=== PATIENT | female | born 1965 | race Caucasian/White ===

== ENCOUNTER 2018-04-17 10:46 | Emergency (ER) | payer SELFPAY ==
[2018-04-17 10:58] VITALS: BP 105/44; PULSE 54; TEMP 98; BMI 23.0
--- NOTE | 2018-04-17 11:26 | PDOC ---
History of Present Illness - General History Source: Patient - History of Present Illness Timing/Duration: reports: intermittent <Noemi Sorto Last Filed: 04/17/18 14:26> <Nancy Lu - Last Filed: 04/19/18 10:54> - General Chief Complaint: Pain Stated Complaint: SIDE PAIN Time Seen by Provider: 04/17/18 11:03 Past History - Past Medical History COPD: No - Immunization History Immunization Up to Date: Yes - Suicide/Smoking/Psychosocial Hx Smoking History: Never smoked Have you smoked in the past 12 months: No Information on smoking cessation initiated: No Hx Alcohol Use: No Drug/Substance Use Hx: No Substance Use Type: None <Noemi Sorto Last Filed: 04/17/18 14:26> <Nancy Lu - Last Filed: 04/19/18 10:54> - Past Medical History Allergies/Adverse Reactions: Allergies Allergy/AdvReac Type Severity Reaction Status Date / Time No Known Allergies Allergy Verified 04/17/18 10:54 Home Medications: Ambulatory Orders NK [No Known Home Medication] 03/13/15 Review of Systems - Review of Systems Constitutional: No: Chills, Fever Respiratory: No: Cough, Shortness of Breath Cardiac (ROS): No: Chest Pain ABD/GI: No: Constipated, Diarrhea, Nausea, Rectal Bleeding, Vomiting : No: Dysuria, Hematuria <Noemi Sorto Filed: 04/17/18 14:26> *Physical Exam - Vital Signs Last Vital Signs Temp Pulse Resp BP Pulse Ox 98.0 F 54 L 17 105/44 L 100 04/17/18 10:55 04/17/18 10:55 04/17/18 10:55 04/17/18 10:55 04/17/18 10:55 - Physical Exam General Appearance: Yes: Appropriately Dressed. No: Apparent Distress HEENT: positive: Normal Voice Neck: positive: Supple Respiratory/Chest: positive: Lungs Clear, Normal Breath Sounds. negative: Respiratory Distress Cardiovascular: positive: Regular Rate, S1, S2 Gastrointestinal/Abdominal: negative: Tender Musculoskeletal: negative: CVA Tenderness Integumentary: positive: Dry, Warm Neurologic: positive: Fully Oriented, Alert, Normal Mood/Affect <Noemi Sorto - Last Filed: 04/17/18 14:26> - Vital Signs Last Vital Signs Temp Pulse Resp BP Pulse Ox 98.0 F 54 L 17 105/44 L 100 04/17/18 10:55 04/17/18 10:55 04/17/18 10:55 04/17/18 10:55 04/17/18 10:55 <Nancy Lu - Last Filed: 04/19/18 10:54> Moderate Sedation - Procedure Monitoring Vital Signs: Procedure Monitoring Vital Signs Temperature 98.0 F 04/17/18 10:55 Pulse Rate 54 L 04/17/18 10:55 Respiratory Rate 17 04/17/18 10:55 Blood Pressure 105/44 L 04/17/18 10:55 O2 Sat by Pulse Oximetry (%) 100 04/17/18 10:55 <Noemi Sorto - Last Filed: 04/17/18 14:26> - Procedure Monitoring Vital Signs: Procedure Monitoring Vital Signs Temperature 98.0 F 04/17/18 10:55 Pulse Rate 54 L 04/17/18 10:55 Respiratory Rate 17 04/17/18 10:55 Blood Pressure 105/44 L 04/17/18 10:55 O2 Sat by Pulse Oximetry (%) 100 04/17/18 10:55 <Nancy Lu - Last Filed: 04/19/18 10:54> ED Treatment Course - LABORATORY CBC & Chemistry Diagram: 04/17/18 11:12 04/17/18 11:12 <Noemi Sorto - Last Filed: 04/17/18 14:26> - LABORATORY CBC & Chemistry Diagram: 04/17/18 11:12 04/17/18 11:12 - ADDITIONAL ORDERS Additional order review: 04/17/18 11:12 RBC 4.36 MCV 87.5 MCHC 34.4 RDW 13.3 MPV 8.2 Neutrophils % 57.7 Lymphocytes % 35.0 Monocytes % 5.9 Eosinophils % 1.0 Basophils % 0.4 - Medications Given in the ED: ED Medications Discontinued Medications Generic Name Dose Route Start Last Admin Trade Name Freq PRN Reason Stop Dose Admin Ketorolac Tromethamine 30 mg 04/17/18 14:09 04/17/18 14:12 Toradol Injection - IVPUSH 04/17/18 14:10 30 mg ONCE ONE Administration <Nancy Lu - Last Filed: 04/19/18 10:54> Medical Decision Making - Medical Decision Making 04/17/18 11:24 53-year-old female, denies any past medical history here with 3 days of intermittent RUQ pain, unable to describe, 10 out of 10 at its worse with no exacerbating or alleviating factors. Denies any nausea, vomiting, fever, chills , change in bowel movements, dysuria or hematuria. 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 No history of similar pain. Denies history of gallstones or kidney stones See exam Possible biliary colic vs gastritis, less likely pancreatitis, renal colic or uti/pyelo, doubt cardiac source Stable w/ unremarkable exam -pain control -labs -EKG -CXR -US 04/17/18 11:37 04/17/18 13:39 EKG w/ sinus ya to 47 bpm. Pt asymptomatic. States she works out a lot and may have been told she had low HR in past. C unremarkable. Chemistry still pending. Call the lab and was told specimen might have been replaced, but that staff is looking for it. Patient unwilling to wait for results and states she has to moss picker her grandchild. Requested that we call her with those results. 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 Pt states she was never informed that she had a hemangioma. Patient given copy of ultrasound report and was discharged in stable condition to follow up with her PMD for further evaluation. Dr. Lu made aware of dispo <Noemi Sorto - Last Filed: 04/17/18 14:26> *DC/Admit/Observation/Transfer <Noemi Sorto - Last Filed: 04/17/18 14:26> - Attestations Physician Attestion: I reviewed the case with the mid-level practitioner and agree with the mid- level practitioner's assessment, diagnosis and disposition. <Nancy Lu - Last Filed: 04/19/18 10:54> Diagnosis at time of Disposition: RUQ pain, Liver hemangioma - Discharge Dispostion Disposition: HOME Condition at time of disposition: Stable - Patient Instructions Printed Discharge Instructions: Hemangioma Additional Instructions: Your ultrasound today shows that you have a group of dilated blood vessels call a hemangioma. Compared to imaging from 2006, this hemangioma appears to have increased in size. This could possibly explain your pain, but you will need to follow-up with your PMD for further evaluation. If symptoms worsen, return to ER
[2018-04-17 12:09] LABS: BASO % 0.4 % (0-2.0); HEMATOCRIT 38.1 % (32.4-45.2); HEMOGLOBIN 13.1 GM/dL (10.7-15.3); MCH 30.1 pg (25.7-33.7); MCHC 34.4 g/dl (32.0-36.0); MEAN CELL VOLUME 87.5 fl (80-96); MEAN PLT VOLUME 8.2 fl (7.5-11.1); MONO % 5.9 % (3.8-10.2); NEUT % 57.7 % (42.8-82.8); PLATELET COUNT 235 K/MM3 (134-434); RBC 4.36 M/mm3 (3.60-5.2); RDW 13.3 % (11.6-15.6)
[2018-04-17 12:14] LABS: URINE APPEARANCE CLEAR; URINE BILIRUBIN NEGATIVE (<2.0 mg/dL); URINE COLOR STRAW; URINE GLUCOSE (UA) NEGATIVE (NEGATIVE); URINE KETONE NEGATIVE (NEGATIVE); URINE LEUK ESTERASE NEGATIVE (NEGATIVE); URINE NITRITE NEGATIVE (NEGATIVE); URINE PROTEIN NEGATIVE (NEGATIVE); URINE UROBILINOGEN NEGATIVE mg/dL (0.2-1.0)
[2018-04-17] MEDS ORDERED: KETOROLAC TROMETHAMINE 30 MG/1 ML VIAL ONE (13:48)
[2018-04-17] MEDS ORDERED: KETOROLAC TROMETHAMINE 30 MG/1 ML VIAL IVPUSH ONE (14:09)
[2018-04-17 14:34] LABS: ALBUMIN 3.9 g/dl (3.4-5.0); ALK PHOS 73 U/L (45-117); ANION GAP 5 MMOL/L (8-16); BILIRUBIN,TOTAL 0.6 mg/dL (0.2-1); BLOOD UREA NITROGEN 14 mg/dL (7-18); CHLORIDE 108 mmol/L (98-107); CO2 30 mmol/L (21-32); CREATININE 0.9 mg/dL (0.55-1.3); GLUCOSE,RANDOM 70 mg/dL (74-106); LIPASE 158 U/L (73-393); POTASSIUM 4.2 mmol/L (3.5-5.1); SGOT/AST 12 U/L (15-37); SGPT/ALT 22 U/L (13-61); SODIUM 143 mmol/L (136-145)
--- NOTE | 2018-04-20 11:05 | EKG ---
Test Reason : Blood Pressure : / mmHG Vent. Rate : 047 BPM Atrial Rate : 047 BPM P-R Int : 128 ms QRS Dur : 086 ms QT Int : 430 ms P-R-T Axes : 026 051 047 degrees QTc Int : 380 ms SINUS BRADYCARDIA OTHERWISE NORMAL ECG NO PREVIOUS ECGS AVAILABLE Confirmed by GEOVANNI GASPAR MD ([id number]) on 04/20/2018 11:04:59 AM Referred By: Confirmed By:GEOVANNI GASPAR MD
== END 2018-04-17 14:40 | disposition home or self-care (01) ==
LOC: JER 10:46
PROC: 3E0333Z Introduction of Anti-inflammatory into Peripheral Vein, Percutaneous Approach (ICD-10-PCS; principal; 2018-04-17)
DX: R10.11 Right upper quadrant pain (principal)
CPT/HCPCS: 36415; 71046-TC-FY; 76705-TC; 80053; 81003; 83690; 85025; 93005; 93010; 99283-25